=== PATIENT | female | born 1940 | race Caucasian/White ===

== ENCOUNTER → 2017-01-27 | Outpatient (CLI) | payer MEDICARE ==
--- NOTE | 2017-01-28 09:15 | MAM ---
History: Well woman exam. Date of exam: 01/27/2017 Services provided: Bilateral full field digital screening mammography. CAD, the images were reviewed with R2 computer aided detection. FINDINGS: Glandular tissue is scattered glandular pattern. Study is compared with 2016 and 2013 exams. Stable glandular pattern with stable intramammary lymph node left breast 8:00, sonogram from 2016 is reviewed. No dominant mass, architectural distortion or clustered microcalcification. IMPRESSION: Benign exam Recommendation: Routine annual mammography BIRAD CATEGORY: 2 BENIGN Electronically signed by: Elisa Rodriguez MD 01/28/2017 9:14 AM CDT
== END | disposition home or self-care (01) ==
LOC: MAMMO 11:44
PROVIDERS: ATTEND Family Medicine
DX: Z12.31 Encounter for screening mammogram for malignant neoplasm of breast (principal)

== ENCOUNTER → 2017-04-28 | Outpatient (CLI) | payer MEDICARE, MEDICAID ==
--- NOTE | 2017-04-29 09:35 | MRI ---
EXAM DESCRIPTION: Lumbar Spine w/o Contrast CLINICAL HISTORY: LOW BACK PAIN COMPARISON: None. TECHNIQUE: Multiplanar, multisequence MRI of the lumbar spine was performed without contrast. FINDINGS: GENERAL Lumbar vertebral bodies show normal height without compression deformity. Trace anterolisthesis of L4 on L5 is seen. Several vertebral body hemangiomas are seen including 2.2 cm hemangioma on the right at L4 and 1.2 cm hemangioma on the right at L1. Conus medullaris terminates at T12-L1 and is unremarkable. Visualized intra-abdominal retroperitoneal structures show fusiform aneurysmal dilatation of the abdominal aorta measuring 3 cm greatest transverse diameter just below the level of the renal arteries. Multiple fluid signal renal cortical cysts are noted bilaterally. Dominant mostly exophytic cyst of the lower pole left kidney measures 5.6 cm. L1-2 Disc desiccation and mild loss of disc space height with 3 mm broad-based disc bulge and mild bilateral facet arthropathy contributes to mild spinal canal stenosis without significant foraminal encroachment. L2-3 Mild disc desiccation without disc space narrowing. Mild bilateral facet arthropathy. No significant spinal canal stenosis or foraminal encroachment. L3-4 Desiccation of the disc space and mild loss of disc space height is seen. Mild bilateral facet hypertrophic and degenerative changes with ligamentum flavum thickening is seen. This contributes to mild spinal canal stenosis with mild lateral recess encroachment and minimal foraminal encroachment. L4-5 Disc desiccation and mild loss of disc space height is seen. There is a 4 mm broad-based disc bulge eccentric towards the right with moderate facet hypertrophic and degenerative changes including ligamentum flavum thickening. Mild spinal canal stenosis is seen. There is moderate right lateral recess encroachment on the descending L5 nerve root. Mild left foraminal encroachment is seen. L5-S1 Disc desiccation and moderate diffuse disc space narrowing is seen. Mild left greater than right facet hypertrophic and degenerative changes are noted. Mild disc osteophytic ridging in the inferior aspect of the neural foramen far lateral left greater than right is seen without significant nerve root impingement. Mild Modic type I degenerative endplate signal changes towards the right with Modic type II degenerative endplate signal changes towards the left. Mild vacuum disc is noted. 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 Disc degenerative changes are most significant at L5-S1 facet arthropathy most prominent at L3-4 and L4-5 There is multifactorial mild spinal canal stenosis at L3-4. Moderate right lateral recess encroachment is seen at L4-5. Incidental 3 cm infrarenal abdominal aortic aneurysm. Recommend follow-up imaging every 3 years. AAA Size: Follow-up Recommendation (1): 2.6 - 2.9 cm Every 5 years (2) 3.0 - 3.4 cm Every 3 years 3.5 - 3.9 cm Every 12 months 4.0 - 4.4 cm Every 12 months, vasc consult rec 4.5 - 5.4 cm Every 6 months, vasc consult rec >=5.5 cm Referral to vascular surgeon recommended (1)Based upon the Society for Vascular Surgery Guidelines: J Vasc Surg. 2009 Jul;50(4 Suppl):S2-49 (2)For aortas of max rosa [place] of 2.6-2.9 cm that meet criteria for AAA (>= 1.5 x proximal normal segment) Electronically signed by: Zachery Jesus MD 04/29/2017 9:34 AM CDT
== END | disposition home or self-care (01) ==
LOC: MRI 12:54
PROVIDERS: ATTEND Family Medicine
DX: M51.37 Other intervertebral disc degeneration, lumbosacral region (principal)

== ENCOUNTER → 2017-08-11 | Outpatient (CLI) | payer MEDICARE, MEDICAID | END | disposition home or self-care (01) | LOC: YCFC.O 11:16 | PROVIDERS: ATTEND Anesthesiology Pain Medicine | DX: Z79.891 Long term (current) use of opiate analgesic (principal) ==

== ENCOUNTER 2017-09-01 05:42 | Day surgery (SDC) | payer MEDICARE, MEDICAID ==
[2017-09-01] MEDS ORDERED: SODIUM CHLORIDE 0.9% 10 ML VIAL ONE (11:32)
[2017-09-01] MEDS ORDERED: methylPREDNISolone ACETATE 80 MG/ML VIAL ONE (11:32)
[2017-09-01] MEDS ORDERED: SODIUM BICARBONATE VIAL 50 MEQ/50 ML VIAL ONE (11:32)
[2017-09-01] MEDS ORDERED: LIDOCAINE 1% MPF 5 ML VIAL ONE (11:33)
[2017-09-01] MEDS ORDERED: BUPIVACAINE 0.25% INJ 30 ML VIAL INJ ONE (12:12)
[2017-09-01 13:22] VITALS: BP 146/71; TEMP 97.9; O2SAT 96
== END 2017-09-01 13:15 | disposition home or self-care (01) ==
LOC: AMB 05:42
PROVIDERS: ATTEND Anesthesiology Pain Medicine
DX: M51.16 Intervertebral disc disorders with radiculopathy, lumbar region (principal); M54.5 Low back pain
CPT/HCPCS: 62323; 76000; J1030

== ENCOUNTER 2017-09-29 05:42 | Day surgery (SDC) | payer MEDICARE, MEDICAID ==
[2017-09-29] MEDS ORDERED: SODIUM BICARBONATE VIAL 50 MEQ/50 ML VIAL ONE (11:19)
[2017-09-29] MEDS ORDERED: SODIUM CHLORIDE 0.9% 10 ML VIAL ONE (11:19)
[2017-09-29] MEDS ORDERED: methylPREDNISolone ACETATE 80 MG/ML VIAL ONE (11:20)
[2017-09-29] MEDS ORDERED: LIDOCAINE 1% MPF 5 ML VIAL ONE (11:20)
[2017-09-29] MEDS ORDERED: BUPIVACAINE 0.25% INJ 30 ML VIAL INJ ONE (11:21)
[2017-09-29 12:36] VITALS: TEMP 98.6
[2017-09-29 14:40] VITALS: BP 145/81; O2SAT 97
== END 2017-09-29 13:20 | disposition home or self-care (01) ==
LOC: AMB 05:42
PROVIDERS: ATTEND Anesthesiology Pain Medicine
DX: M51.16 Intervertebral disc disorders with radiculopathy, lumbar region (principal); M54.5 Low back pain; F41.9 Anxiety disorder, unspecified; Z87.891 Personal history of nicotine dependence; K21.9 Gastro-esophageal reflux disease without esophagitis; E78.00 Pure hypercholesterolemia, unspecified; I10 Essential (primary) hypertension; E11.9 Type 2 diabetes mellitus without complications; Z79.899 Other long term (current) drug therapy; Z88.2 Allergy status to sulfonamides; Z88.8 Allergy status to other drugs, medicaments and biological substances
CPT/HCPCS: 64483; 76000; J1030